=== PATIENT | female | born 1980 | race Caucasian/White ===

== ENCOUNTER 2019-01-23 11:10 | Day surgery (SDC) | payer OTHER ==
[~2019-01-23 11:10] MED LIST: FOLIC ACID1 MG PO; LABETALOL HCL100 MG PO; OBTREX DHA PRE1 EACH PO; PLAQUENIL PO
== END 2019-01-23 14:55 | disposition home or self-care (01) ==
LOC: CIR.AMB 11:10
DX: O02.1 Missed abortion (principal); Z3A.01 Less than 8 weeks gestation of pregnancy